=== PATIENT | male | born 1965 | race Caucasian/White ===

== ENCOUNTER 2024-05-25 19:03 | Inpatient (IN) | payer OTHER ==
[2024-05-25] MEDS ORDERED: ACETAMINOPHEN INJECTION 100 ML ONE (19:35)
[2024-05-25] MEDS: ACETAMINOPHEN 1000 MG/100 ML BAG IVPB ONE (19:47)
[2024-05-25 19:55] LABS: BASO % 0.3 % (0-2.0); EOS % 0.6 % (0-4.5); HEMATOCRIT 51.9 % (35.4-49); HEMOGLOBIN 17.9 GM/dL (11.7-16.9); LYMPH % 11.8 % (8-40); MCH 30.7 pg (25.7-33.7); MCHC 34.5 g/dl (32.0-35.9); MEAN PLT VOLUME 7.1 fl (7.5-11.1); MONO % 6.5 % (3.8-10.2); NEUT % 80.8 % (42.8-82.8); PLATELET COUNT 266 10^3/uL (134-434); RBC 5.82 M/mm3 (4.00-5.60); WHITE BLOOD COUNT 10.9 K/mm3 (4.0-10.0)
[2024-05-25] MEDS: SODIUM CHLORIDE 0.9% 1000 ML INFUS.BAG IV ONE (19:55)
[2024-05-25 20:22] LABS: POTASSIUM 3.9 mmol/L (3.5-5.1)
[2024-05-25 20:24] LABS: ALBUMIN 4.3 g/dl (3.4-5.0); BLOOD UREA NITROGEN 14.6 mg/dL (7-18); CALCIUM 9.6 mg/dL (8.5-10.1)
[2024-05-25 20:28] LABS: BILIRUBIN,TOTAL 1.8 mg/dL (0.2-1); CREATININE 0.9 mg/dL (0.55-1.3)
[2024-05-25 20:30] LABS: TOT PROT 8.3 g/dl (6.4-8.2)
[2024-05-25 21:23] LABS: EPI CELLS 1 /uL (0-25.1); HYALINE CASTS 0 /uL (0-3.1); PH,URINE 5.5 (5.0-8.0); URINE APPEARANCE CLEAR; URINE BACTERIA 7 /uL (0-1359); URINE BILIRUBIN NEGATIVE (NEGATIVE); URINE COLOR YELLOW; URINE GLUCOSE (UA) NEGATIVE (NEGATIVE); URINE KETONE 1+ (NEGATIVE); URINE LEUK ESTERASE NEGATIVE (NEGATIVE); URINE NITRITE NEGATIVE (NEGATIVE); URINE PROTEIN 1+ (NEGATIVE); URINE RBC 19 /uL (0-23.9); URINE WBC 4 /uL (0-25.8)
[2024-05-25] MEDS ORDERED: LIDOCAINE HCL 2% JELLY 11 ML TP ONE (23:30)
[2024-05-25] MEDS ORDERED: ONDANSETRON 4 MG/2 ML VIAL ONE (23:39)
[2024-05-25] MEDS: ONDANSETRON 4 MG/2 ML VIAL IVPUSH ONE (23:42)
[2024-05-25] MEDS ORDERED: ACETAMINOPHEN 1000 MG/100 ML BAG IVPB PRN (23:46)
[2024-05-25] MEDS ORDERED: ONDANSETRON 4 MG/2 ML VIAL IVPUSH PRN (23:46)
[2024-05-25] MEDS ORDERED: hydrALAZINE HCL 20 MG/ML VIAL IM PRN (23:48)
[2024-05-26] LABS: BILIRUBIN,DIRECT 0.4 mg/dL (0.0-0.2)
[2024-05-26 02:32] VITALS: BMI 33.4
[2024-05-26] MEDS: SODIUM CHLORIDE 1,000 ML IV SCH (02:43)
[2024-05-26] MEDS: ACETAMINOPHEN 1000 MG/100 ML BAG IVPB PRN (03:56)
[2024-05-26 08:24] LABS: HEMATOCRIT 44.9 % (35.4-49); HEMOGLOBIN 15.2 GM/dL (11.7-16.9); MCH 30.5 pg (25.7-33.7); MCHC 33.9 g/dl (32.0-35.9); MEAN CELL VOLUME 90.1 fl (80-96); MEAN PLT VOLUME 7.2 fl (7.5-11.1); PLATELET COUNT 218 10^3/uL (134-434); RBC 4.98 M/mm3 (4.00-5.60); RDW 13.8 % (11.9-15.9); WHITE BLOOD COUNT 7.4 K/mm3 (4.0-10.0)
[2024-05-26 09:08] LABS: POTASSIUM 3.5 mmol/L (3.5-5.1)
[2024-05-26 09:14] LABS: CREATININE 0.8 mg/dL (0.55-1.3); PHOSPHOROUS 2.8 mg/dL (2.5-4.9)
[2024-05-26 09:16] LABS: ALBUMIN 3.3 g/dl (3.4-5.0); BILIRUBIN,TOTAL 1.9 mg/dL (0.2-1); CALCIUM 8.2 mg/dL (8.5-10.1); TOT PROT 6.5 g/dl (6.4-8.2)
[2024-05-26 09:17] LABS: BILIRUBIN,DIRECT 0.3 mg/dL (0.0-0.2)
[2024-05-26 09:19] LABS: MAGNESIUM 1.8 mg/dL (1.8-2.4)
[2024-05-26] MEDS: ENOXAPARIN NA (PORCINE) 40 MG/0.4 ML DISP.SYRIN SQ SCH (11:37)
[2024-05-27 07:10] LABS: HEMATOCRIT 41.2 % (35.4-49); HEMOGLOBIN 13.8 GM/dL (11.7-16.9); MCH 30.4 pg (25.7-33.7); MCHC 33.5 g/dl (32.0-35.9); MEAN CELL VOLUME 90.7 fl (80-96); MEAN PLT VOLUME 7.1 fl (7.5-11.1); PLATELET COUNT 196 10^3/uL (134-434); RBC 4.54 M/mm3 (4.00-5.60); RDW 13.7 % (11.9-15.9)
[2024-05-27 07:33] LABS: CALCIUM 8.3 mg/dL (8.5-10.1)
[2024-05-27 07:34] LABS: ALBUMIN 3.1 g/dl (3.4-5.0); BLOOD UREA NITROGEN 15.4 mg/dL (7-18)
[2024-05-27 07:37] LABS: CREATININE 0.7 mg/dL (0.55-1.3)
[2024-05-27 07:38] LABS: BILIRUBIN,TOTAL 1.5 mg/dL (0.2-1)
[2024-05-27 10:40] VITALS: RESP 18
[2024-05-27] MEDS ORDERED: DEXTROSE 5%-NORMAL SALINE 1,000 ML IV SCH (11:45)
[2024-05-27 17:54] VITALS: BP 167/87; PULSE 87; TEMP 98.8
== END 2024-05-27 18:09 | disposition home or self-care (01) | DRG 390 ==
LOC: JER 19:03 → OBSVTOIN 23:21 → JERBED 23:21 → J7W 05-26 02:05
PROVIDERS: ADMIT Internal Medicine; ATTEND Physician Assistant
DX: K56.600 Partial intestinal obstruction, unspecified as to cause (principal); I10 Essential (primary) hypertension; E66.9 Obesity, unspecified; Z68.33 Body mass index [BMI] 33.0-33.9, adult; R10.9 Unspecified abdominal pain; D72.829 Elevated white blood cell count, unspecified; K56.7 Ileus, unspecified
CPT/HCPCS: 36415; 74019-TC-FY; 74177-TC; 80053; 81003; 82248; 82962; 83605; 83690; 83735; 84100; 84484; 85025; 85027; 87086; 93005; 93010; 99285-25; J0131; Q9967